=== PATIENT | female | born 1985 | race African-American/Black ===

== ENCOUNTER 2020-05-26 03:40 | Emergency (ER) | payer MEDICAID ==
[~2020-05-26] VITALS: Ht 172.7 cm; Wt 82.6 kg
[2020-05-26 03:45] VITALS: BP 120/72
[2020-05-26] MEDS ORDERED: ACETAMINOPHEN 325 MG TABLET ONE (03:46)
[2020-05-26] MEDS ORDERED: ACETAMINOPHEN 325 MG TABLET PO ONE (04:00)
== END 2020-05-26 04:42 | disposition home or self-care (01) ==
LOC: ER 03:49
DX: M79.672 Pain in left foot (principal); Z59.0 Homelessness